=== PATIENT | male | born 1965 | race Caucasian/White ===

== ENCOUNTER 2023-02-10 16:46 | Inpatient (IN) ==
[2023-02-10] MEDS ORDERED: SODIUM CHLORIDE 0.9% 1,000 ML IV STA (16:52)
[2023-02-10] MEDS ORDERED: ONDANSETRON INJ 2 MG/ML 2 ML VIAL IV STA (16:52)
--- NOTE | 2023-02-10 16:57 | ED Triage Note ---
Date of Service February 10, 2023 History of Present Illness This patient was briefly evaluated while in triage. An abbreviated physical exam was performed. This patient is a 57-year-old Male who presents to the ED for evaluation of diffuse abdominal pain, vomiting diarrhea x 4 days. Feels dehydrated. No fevers but felt hot. epigastric pain but no chest pain or dyspnea. No bloody diarrhea. Physical Exam CONSTITUTIONAL: in no acute pain or distress, resting comfortably SKIN: pink, warm, dry CARDIAC: regular rate and rhythm RESPIRATORY: in no respiratory distress, lungs clear to auscultation ABDOMEN: no focal tenderness Initial orders for labs and / or imaging were placed and patient was placed in the waiting area until a bed is available. Please see further documentation for the full ED course.
[2023-02-10] MEDS ORDERED: PANTOprazole 80 MG in DEXTROSE 5% 100 ML IV ONE (17:29)
[2023-02-10] MEDS ORDERED: PANTOPRAZOLE BOLUS/DRIP IV STA (17:29)
[2023-02-10] MEDS ORDERED: PANTOprazole 40 MG in DEXTROSE 5% 100 ML IV SCH (17:45)
[2023-02-10 17:49] LABS: Basophils # (auto) 0.03 K/uL (0.00-0.20); Basophils % (auto) 0.4 %; Eosinophils # (auto) 0.04 K/uL (0.00-0.50); Eosinophils % (auto) 0.5 %; Hematocrit (blood only) 43.9 % (42.0-52.0); Hemoglobin 15.4 g/dl (14.0-18.0); Immature Granulocytes # (auto) 0.02 K/uL (0.01-0.20); Immature Granulocytes % (auto) 0.3 %; Lymphocytes # (auto) 1.29 K/uL (1.20-3.40); Lymphocytes % (auto) 17.2 %; Mean Corpuscular Hemoglobin 31.4 pg (25.0-34.0); Mean Corpuscular Hgb Conc 35.1 g/dL (32.0-36.0); Mean Corpuscular Volume 89.6 fL (80.0-100.0); Mean Platelet Volume 12.4 fL (9.4-12.4); Monocytes # (auto) 0.94 K/uL (0.11-0.59); Monocytes % (auto) 12.6 %; Neutrophils # (auto) 5.16 K/uL (1.40-6.50); Platelet Count 141 K/uL (130-400); RDW Coefficient of Variation 12.1 % (11.5-14.5); RDW Standard Deviation 39.8 fL (36.4-46.3); White Blood Count 7.48 K/ul (4.8-10.8)
[2023-02-10 18:03] LABS: Albumin Globulin Ratio 1.7 (0.9-2); BUN Creatinine Ratio 16.2 (10-20); Bilirubin,Total 1.1 mg/dl (0.2-1.0); Creatinine Clr Calc Pharmacy 167.4 ml/min; Est GFR (African American) 123.7 ml/min; Est GFR (Non-African American) 106.8 ml/min; Globulin 2.3 gm/dl (2.5-4.0); Potassium 3.3 mmol/L (3.5-5.1); Total Protein 6.3 gm/dl (6.0-8.3)
[2023-02-10 18:09] LABS: Troponin I High Sensitivity 5.4 pg/ml (0-20)
[2023-02-10] MEDS ORDERED: OPTIRAY 320 100ml IV ONE (19:23)
[2023-02-10 20:47] LABS: Appearance Urine Clear (Clear); Bilirubin Urine Negative (Negative); Blood Urine Negative (Negative); Color Urine Dark Yellow; Glucose Urine UA Negative (Negative); Ketones Urine Trace (Negative); Leukocyte Esterase Urine Negative (Negative); Nitrite Urine Negative (Negative); Protein Urine Negative (Negative); Specific Gravity Urine > 1.045 (1.000-1.030); Urobilinogen Urine Negative (Negative); pH Urine 5.5 (4.5-7.5)
--- NOTE | 2023-02-10 21:21 | CT Scan Report ---
Exam(s): CT ABDOMEN + PELVIS With Contrast IV Amt: 92 ml optiray 320 EXAM: CT Abdomen and Pelvis With Intravenous Contrast CLINICAL HISTORY: Abdominal pain. TECHNIQUE: Axial computed tomography images of the abdomen and pelvis with intravenous contrast. Automated exposure control was utilized for the study. A dose lowering technique was utilized adhering to the principles of ALARA. CONTRAST: Patient received 92 ml optiray 320 of IV contrast COMPARISON: No relevant prior studies available. FINDINGS: Lung bases: Right lower lobe airspace opacities concerning for pneumonia and/or aspiration. Pleural space: Trace right pleural effusion. ABDOMEN: Liver: Unremarkable. No mass. Gallbladder and bile ducts: Distended gallbladder with prominent wall and pericholecystic fluid is noted. The fluid extends inferiorly surrounding the proximal duodenum and common bile duct. Pancreas: Unremarkable. No mass. No ductal dilation. Spleen: Unremarkable. No splenomegaly. Adrenals: Unremarkable. No mass. Kidneys and ureters: Punctate nonobstructing right renal calculus. No hydronephrosis of either kidney. Stomach and bowel: Thickening of the duodenum and colon at the hepatic flexure are likely reactive. PELVIS: Appendix: Normal appendix. Bladder: Unremarkable. No mass. Reproductive: Unremarkable as visualized. ABDOMEN and PELVIS: Intraperitoneal space: Unremarkable. No free air. No significant fluid collection. Bones/joints: There are degenerative changes of the spine. No acute fracture. No dislocation. Soft tissues: Small bilateral fat-containing umbilical hernias. There is a small fat-containing umbilical hernia. Vasculature: Mild atherosclerosis. No abdominal aortic aneurysm. Lymph nodes: Unremarkable. No enlarged lymph nodes. IMPRESSION: 1. Distended gallbladder with prominent wall and pericholecystic fluid is noted. The fluid extends inferiorly surrounding the proximal duodenum and common bile duct. The differential includes acute cholecystitis and ascending cholangitis. 2. Right lower lobe airspace opacities concerning for pneumonia and/or aspiration. 3. Punctate nonobstructing right renal calculus. No hydronephrosis of either kidney. 4. Thickening of the duodenum and colon at the hepatic flexure are likely reactive. 5. Trace right pleural effusion. 6. Erosive employed changes of L2-L3 may be degenerative, cannot exclude discitis/osteomyelitis. Electronically signed by: Zenaida Ricardo MD 02/10/23 21:20 PM
[2023-02-10] MEDS ORDERED: cefTRIAXone SODIUM 2,000 MG/70 ML BAG IV STA (21:38)
[2023-02-10] MEDS ORDERED: metroNIDAZOLE 500 MG/100 ML BAG IV STA (21:38)
[2023-02-10] MEDS ORDERED: AZITHROMYCIN 500 MG in DEXTROSE 5% 250 ML IV STA (21:53)
[2023-02-10 22:06] LABS: Adenovirus F 40/41 PCR Not Detected (NotDetected); Astrovirus PCR Not Detected (NotDetected); Campylobacter PCR Not Detected (NotDetected); Cryptosporidium PCR Not Detected (NotDetected); Cyclospora cayetanensis PCR Not Detected (NotDetected); Entamoeba histolytica PCR Not Detected (NotDetected); Enteroaggregative E.coli(EAEC) Not Detected (NotDetected); Enteropathogenic E.coli (EPEC) Not Detected (NotDetected); Enterotoxigenic E.coli (ETEC) Not Detected (NotDetected); Giardia lamblia PCR Not Detected (NotDetected); Norovirus GI/GII PCR Not Detected (NotDetected); Plesiomonas shigelloides PCR Not Detected (NotDetected); Rotavirus A PCR Not Detected (NotDetected); Salmonella PCR Not Detected (NotDetected); Sapovirus PCR Not Detected (NotDetected); Shiga-like Toxin E.coli (STEC) Not Detected (NotDetected); Shigella/Enteroinvasive E.coli Not Detected (NotDetected); Vibrio cholerae PCR Not Detected (NotDetected); Vibrio species PCR Not Detected (NotDetected); Yersinia enterocolitica PCR Not Detected (NotDetected)
--- NOTE | 2023-02-10 22:06 | Surgery Consultation ---
Date of Consultation February 10, 2023 Assessment & Plan (1) Cholecystitis: I discussed with the treating emergency room physician he is being admitted on the hospitalist service. We recommend proceeding as follows: We will keep the patient n.p.o. for the present time Would continue intravenous fluid resuscitation Would recommend maintaining the patient on antibiotics. He has received Rocephin, Zithromax, and Flagyl. Antibiotic should continue. Of note, the treating emergency room physician has added Zithromax due to concern for possible pneumonia noted on CT scan There is no comment, nor can I see any gallstones on the patient's CAT scan so we will check a right upper quadrant ultrasound for further delineation and evaluation of the patient's gallbladder and biliary system Serial labs to be followed Analgesics and antiemetics to be provided Patient will be reevaluated in the morning and a determination will be made about potential timing of possible cholecystectomy Supervising Physician Co-Signing Physician Notes This case was discussed with the surgical PA. I agree with the plan. History of Present Illness Reason for Consultation: Cholecystitis History of Present Illness This is a 57-year-old male who presented the emergency department secondary to 3 to 4 days of abdominal pain. He notes that the pain is nonradiating is located in the right upper quadrant. He denies any palliative or provocative factors. He denies any fevers. The patient denies any postprandial pain over the past several weeks to months. He has never had any prior abdominal surgeries. He notes his most recent oral intake was earlier this morning. Since arrival to the hospital the patient has had labs and imaging which I independent reviewed. CT scan of the abdomen pelvis showed the patient had a distended gallbladder with pericholecystic fluid. The patient was also noted to have some right lower lobe airspace opacities concerning for pneumonia. Labs include a CBC her white blood cell count, hemoglobin, hematocrit, and platelet count were normal. Chemistry profile showed sodium was 135 with a potassium of 3.3. BUN and creatinine were both within normal range. His total bilirubin is 1.1. Transaminases and alkaline phosphatase along with lipase were nonelevated. Urinalysis was not indicative of infection. At the time of my interview the patient was resting comfortably in bed he was in no distress. Allergies Allergy/AdvReac Type Severity Reaction Status Date / Time No Known Allergies Allergy Verified 02/10/23 22:58 Home Medications Medication Instructions Recorded Confirmed Type levothyroxine 175 mcg tablet 175 mcg PO QAM 11/19/22 02/10/23 History pantoprazole 40 mg tablet,delayed 40 mg PO QAM 11/19/22 02/10/23 History release Patient History Medical History Chronic back pain Chronic cough s/p covid-19 virus in 2020. reason for flovent GERD (gastroesophageal reflux disease) H/O carbuncle of skin and subcutaneous tissue Hip deformity, congenital follows with healthcare economics manager on a regular basis History of COVID-19 2020 - severe symptoms, no hospitalization. still has not fully regained his full smell nor full taste and a lingering cough since. Hx of colonic polyps Hypothyroidism Osteoarthritis Surgical History H/O removal of cyst removal of carbuncle of the axilla as a child History of cataract surgery History of colonoscopy Family History Other No family history of adverse response to anesthesia Social History Smoking Status: Former smoker Second Hand Exposure: Yes; Do You Dip or Chew Tobacco: No; Tobacco Cessation Education Requested by Patient: No Hx Alcohol Use: Yes Alcohol type: beer Hx Substance Use: No Preferred Language: Portuguese Communication Ability: Effective [employer] Required: No Beliefs That Will Affect Care: None Current Living Situation: Spouse Other Information That Helps Us Care for You: No Feels Safe at Home: Yes Safety Concerns: Feels Safe At This Time Assistive Devices: None Review of Systems Constitutional: no fever Ear, Nose, Mouth, Throat: no ear pain Respiratory: no cough and no dyspnea Cardiovascular: no chest pain Gastrointestinal: as per Subjective / HPI Genitourinary: no dysuria Musculoskeletal: no back pain Integumentary: no rash Neurologic: no localized weakness Physical Exam Constitutional: WD/WN, vitals as above Eyes: + anicteric sclerae ENMT: Ears: no hearing impairment and no external ear abnormality Mouth: no oropharynx abnormality Neck: trachea midline Respiratory: normal respiratory effort; no respiratory distress and no labored breathing Cardiovascular: Rate/Rhythm: regular rate and regular rhythm Gastrointestinal (Abdomen): Abdomen is soft, nonrigid, nondistended. The patient did have pain with palpation in the right upper quadrant Musculoskeletal: No calf tenderness Skin: no rashes Neurologic: moves all extremities Psychiatric: A+Ox3, euthymic affect Results & Data Vital Signs (Past 12 Hours) Vital Signs Temp Pulse Pulse Resp BP BP Pulse Ox 02/10/23 20:32 94 02/10/23 20:01 90 20 143/94 H 95 02/10/23 16:49 36.9 C 99 H 20 121/83 94 O2 Del Method 02/10/23 20:32 Room Air 02/10/23 20:01 Room Air 02/10/23 16:49 Room Air PG Care Time/CCT Total # of Minutes Spent Total Time Spent with Patient: Total time spent is greater than 50% in coordination of care (as documented) at patient's floor/unit and/or counseling patient: Coding Level of Care Code 88104 IN/OBS CONSULT LVL 5,80M Diagnoses Cholecystitis K81.9
--- NOTE | 2023-02-10 23:00 | Emergency Department Note ---
History of Present Illness General Chief complaint: Abdominal Pain Stated complaint: ?FOOD POISENING Time Seen by Provider: 02/10/23 17:20 History of Present Illness Provider Complaint: + nausea, + vomiting, + diarrhea and + abdominal pain Onset (ago): day(s) 4 Description of Vomiting: no bilious, no blood-streaked, no bloody or no coffee grounds Description of Diarrhea: no mucousy, no tarry, no blood-streaked or no bloody (b right red) Associated Abdominal Pain: Yes Location of pain: + diffuse Severity: moderate Quality: + cramping, + stabbing, + aching, + sharp and + dull Pain Consistency: + intermittent Relieved By: + none Exacerbated By: + eating Context: + possible food poisoning (Patient reports his symptoms began after ea ting salad); no sick contacts, no history of abdominal surgery, no alcohol abuse, no smoking or no marijuana use Associated symptoms: no myalgias, no chest pain, no cough, no fever/chills, no headaches, no rash, no dysuria, no shortness of breath, no decreased urine output or no altered mental status Home Medications Medication Instructions Recorded Confirmed Type levothyroxine 175 mcg tablet 175 mcg PO QAM 11/19/22 02/10/23 History pantoprazole 40 mg tablet,delayed 40 mg PO QAM 11/19/22 02/10/23 History release Allergies Allergy/AdvReac Type Severity Reaction Status Date / Time No Known Allergies Allergy Verified 02/10/23 22:58 Past Med/Surg History Medical History Chronic back pain Chronic cough s/p covid-19 virus in 2020. reason for flovent GERD (gastroesophageal reflux disease) H/O carbuncle of skin and subcutaneous tissue Hip deformity, congenital follows with ocular care aide on a regular basis History of COVID-19 2020 - severe symptoms, no hospitalization. still has not fully regained his full smell nor full taste and a lingering cough since. Hx of colonic polyps Hypothyroidism Osteoarthritis Surgical History H/O removal of cyst removal of carbuncle of the axilla as a child History of cataract surgery History of colonoscopy Family History Other No family history of adverse response to anesthesia Social History Smoking Status: Never smoker Second Hand Exposure: No; Do You Dip or Chew Tobacco: No; Hx Alcohol Use: No Hx Substance Use: No Preferred Language: Yi Communication Ability: Effective Post Office Manager Required: No Beliefs That Will Affect Care: None Current Living Situation: Spouse Feels Safe at Home: Yes Assistive Devices: Glasses Physical Exam Vital Signs: Vital Signs - 24 hr 02/10/23 16:49 02/10/23 20:01 02/10/23 20:32 Temperature 36.9 C Temperature Source Temporal Artery Sc an Pulse Rate 99 H Pulse Rate [Apical ] 90 Pulse Rhythm [Apic al] Respiratory Rate 20 20 Blood Pressure 121/83 Blood Pressure [Le ft Arm] 143/94 H Blood Pressure Janet n 95 Blood Pressure Janet n [Left Arm] 110 Pulse Oximetry 94 95 94 Oxygen Delivery Me thod Room Air Room Air Room Air Sepsis Recent Feve r Within 48 Hours No Sepsis New/Unexpla ined Change in Men sam Status N/A Sepsis Action Take n by Nursing No Action Required 02/10/23 22:00 Temperature Temperature Source Pulse Rate Pulse Rate [Apical ] 79 Pulse Rhythm [Apic al] Regular Respiratory Rate 16 Blood Pressure Blood Pressure [Le ft Arm] 136/102 H Blood Pressure Janet n Blood Pressure Janet n [Left Arm] 113 Pulse Oximetry 99 Oxygen Delivery Me thod Room Air Sepsis Recent Feve r Within 48 Hours Sepsis New/Unexpla ined Change in Men sam Status Sepsis Action Take n by Nursing Physical Exam: Physical Exam GENERAL: She is oriented to person, place, and time. She appears well-developed and well-nourished. She does not appear distressed. HENT: Exam performed. -Head: Normocephalic and atraumatic. -Right Ear: External ear normal. No mastoid erythema -Left Ear: External ear normal. No mastoid erythema -Mouth/Throat: The oropharynx is clear and moist. No trismus in the jaw. No dental abscesses or uvula swelling. No oropharyngeal exudate or tonsillar abscesses. EYES: Conjunctivae and EOM are normal.Right eye exhibits no discharge. Left eye exhibits no discharge. No scleral icterus. NECK: Normal range of motion. Neck supple. No JVD present. No tracheal deviation and normal range of motion present. CV: Normal rate, regular rhythm, normal heart sounds and intact distal pulses. There is no peripheral edema. Palpable radial pulses bue. PULM/CHEST: Effort normal and breath sounds normal. No respiratory distress. No stridor. She has no wheezes. She has no rales. -Chest Wall: She exhibits no tenderness. ABD: The abdomen is soft and obese. Bowel sounds are normal. She has no distension. No mass is present. There is no tenderness. There is no rebound, no guarding, no Katz's sign and no tenderness at McBurney's point. Rovsig negative MUSC/SKEL: Normal range of motion. There is no peripheral edema, tenderness or deformity. NEURO: Motor and sensation grossly intact. SKIN: Skin is warm and dry. She is not diaphoretic. PSYCH: She has a normal mood and affect. Behavior is normal. Judgment and tho ught content normal. Course Course 1720: The patient was evaluated in room A10. A complete history and physical exam was performed Cardiac monitoring: An order was placed for continuous cardiac monitoring. The monitor shows a rate of 80 with sinus rhythm interpreted by nv 2200: Vital signs stable. Labs show white blood cell count of 7.48 hemoglobin stable. Potassium 3.3. Total bilirubin 1.1. Urinalysis negative. CT abdomen pelvis showed a distended gallbladder with prominent wall and pericholecystic fluid. The fluid extends inferiorly surrounding the duodenum and common bile duct. According to the radiologist the differential includes acute cholecystitis and ascending cholangitis. There is also mention of right lower base airspace opacity concerning for pneumonia. Clinically there is absolutely no concern for a sending cholangitis as the patient has a minimally elevated bilirubin of 1.1, no fever. Discussed case with surgery ARNEL Coreas on-call for Dr. Finn Toro. Surgical team recommends admission to medicine and they will be on consult. Antibiotics Rocephin and Flagyl ordered for the patient's possible cholecystitis and azithromycin also ordered in case of any pneumonia. Patient be admitted to the [facility] team. Administered Medications Discontinued Medications Sodium Chloride (Nss 1000ml) 1,000 mls @ 999 mls/hr IV .Q1H1M STA Stop: 02/10/23 17:52 Last Infusion: 02/10/23 20:04 Dose: 0 mls/hr Documented By: Admin: 02/10/23 17:21 Dose: 999 mls/hr Documented By: CANDIS Pantoprazole Sodium 80 mg/ (Dextrose) 120 mls @ 400 mls/hr IV NOW ONE Stop: 02/10/23 17:46 Last Admin: 02/10/23 20:28 Dose: Not Given Documented By: CINTHIA Ceftriaxone Sodium (Rocephin) 2,000 mg in 70 mls @ 140 mls/hr IV NOW STA Stop: 02/10/23 22:07 Last Admin: 02/10/23 22:17 Dose: 140 mls/hr Documented By: CINTHIA Ioversol (Optiray 320 100ml) 92 ml IV ONCE ONE Stop: 02/10/23 19:24 Last Admin: 02/10/23 19:23 Dose: 92 ml Documented By: EMPERATRIZ Ondansetron HCl (Ondansetron Inj 2 Mg/Ml 2 Ml Vial) 4 mg IV NOW STA Stop: 02/10/23 16:53 Last Admin: 02/10/23 17:21 Dose: 4 mg Documented By: CANDIS Pantoprazole Sodium (Pantoprazole Bolus/Drip) 1 each IV NOW STA Stop: 02/10/23 17:30 Last Admin: 02/10/23 20:28 Dose: Not Given Documented By: CINTHIA Medical Decision Making Laboratory Data Attestation: I reviewed the patient's lab results. 02/10/23 17:16 02/10/23 17:16 Lab Results 02/10/23 02/10/23 02/10/23 Range/Units 17:16 17:16 20:24 WBC 7.48 (4.8-10.8) K/ul RBC 4.90 (4.70-6.10) M/uL Hgb 15.4 (14.0-18.0) g/dl Hct 43.9 (42.0-52.0) % MCV 89.6 (80.0-100.0) fL MCH 31.4 (25.0-34.0) pg MCHC 35.1 (32.0-36.0) g/dL RDW Std Deviation 39.8 (36.4-46.3) fL RDW Coeff of Tatiana 12.1 (11.5-14.5) % Plt Count 141 (130-400) K/uL MPV 12.4 (9.4-12.4) fL Immature Gran % (Auto) 0.3 % Neut % (Auto) 69.0 % Lymph % (Auto) 17.2 % [place] % (Auto) 12.6 % Eos % (Auto) 0.5 % Baso % (Auto) 0.4 % Neut # (Auto) 5.16 (1.40-6.50) K/uL Lymph # (Auto) 1.29 (1.20-3.40) K/uL [place] # (Auto) 0.94 H (0.11-0.59) K/uL Eos # (Auto) 0.04 (0.00-0.50) K/uL Baso # (Auto) 0.03 (0.00-0.20) K/uL Immature Gran # (Auto) 0.02 (0.01-0.20) K/uL Sodium 135 L (136-145) mmol/L Potassium 3.3 L (3.5-5.1) mmol/L Chloride 102 (98-107) mmol/L Carbon Dioxide 24 (21-32) mmol/L Anion Gap 9 (3-11) BUN 11 (6-23) mg/dl Creatinine 0.68 (0.6-1.4) mg/dl Est Cr Clr Drug Dosing 167.4 ml/min Est GFR ( Amer) 123.7 ml/min Est GFR (Non-Af Amer) 106.8 ml/min BUN/Creatinine Ratio 16.2 (10-20) Glucose 103 H (70-99(Fasting)) mg/dl Calcium 9.0 (8.6-10.3) mg/dl Total Bilirubin 1.1 H (0.2-1.0) mg/dl AST 22 (13-39) U/L ALT 26 (7-52) U/L Alkaline Phosphatase 78 (34-104) U/L Troponin I High Sens 5.4 (0-20) pg/ml Total Protein 6.3 (6.0-8.3) gm/dl Albumin 4.0 (3.4-5.0) gm/dl Globulin 2.3 L (2.5-4.0) gm/dl Albumin/Globulin Ratio 1.7 (0.9-2) Lipase 5 L (11-82) U/L Urine Color Urine Appearance (Clear) Urine pH (4.5-7.5) Ur Specific [place] (1.000-1.030) Urine Protein (Negative) Urine Glucose (UA) (Negative) Urine Ketones (Negative) Urine Blood (Negative) Urine Nitrite (Negative) Urine Bilirubin (Negative) Urine Urobilinogen (Negative) Ur Leukocyte Esterase (Negative) Stl C. cayetanensis PCR Not Detected (NotDetected) Stool Rotavirus A PCR Not Detected (NotDetected) Stl Adenov F 40/41 PCR Not Detected (NotDetected) Stool Astrovirus (PCR) Not Detected (NotDetected) Stool Campylobacter PCR Not Detected (NotDetected) Stool Cryptosporidium PCR Not Detected (NotDetected) Stl E.coli Shiga Tox PCR Not Detected (NotDetected) Stl Enterotoxigenic E PCR Not Detected (NotDetected) Stool EPEC (PCR) Not Detected (NotDetected) Stool EAEC (PCR) Not Detected (NotDetected) Stl E. histolytica PCR Not Detected (NotDetected) Stool Giardia Lamblia PCR Not Detected (NotDetected) Stool Salmonella PCR Not Detected (NotDetected) Stool Sapovirus (PCR) Not Detected (NotDetected) Stl P. shigelloides PCR Not Detected (NotDetected) Stl Shigella/EIEC PCR Not Detected (NotDetected) St Y.enterocolitica PCR Not Detected (NotDetected) Stool Vibrio (PCR) Not Detected (NotDetected) Stl Vibrio cholerae PCR Not Detected (NotDetected) Stl Norovirus GI/GII PCR Not Detected (NotDetected) 02/10/23 Range/Units 20:24 WBC (4.8-10.8) K/ul RBC (4.70-6.10) M/uL Hgb (14.0-18.0) g/dl Hct (42.0-52.0) % MCV (80.0-100.0) fL MCH (25.0-34.0) pg MCHC (32.0-36.0) g/dL RDW Std Deviation (36.4-46.3) fL RDW Coeff of Tatiana (11.5-14.5) % Plt Count (130-400) K/uL MPV (9.4-12.4) fL Immature Gran % (Auto) % Neut % (Auto) % Lymph % (Auto) % [place] % (Auto) % Eos % (Auto) % Baso % (Auto) % Neut # (Auto) (1.40-6.50) K/uL Lymph # (Auto) (1.20-3.40) K/uL [place] # (Auto) (0.11-0.59) K/uL Eos # (Auto) (0.00-0.50) K/uL Baso # (Auto) (0.00-0.20) K/uL Immature Gran # (Auto) (0.01-0.20) K/uL Sodium (136-145) mmol/L Potassium (3.5-5.1) mmol/L Chloride (98-107) mmol/L Carbon Dioxide (21-32) mmol/L Anion Gap (3-11) BUN (6-23) mg/dl Creatinine (0.6-1.4) mg/dl Est Cr Clr Drug Dosing ml/min Est GFR ( Amer) ml/min Est GFR (Non-Af Amer) ml/min BUN/Creatinine Ratio (10-20) Glucose (70-99(Fasting)) mg/dl Calcium (8.6-10.3) mg/dl Total Bilirubin (0.2-1.0) mg/dl AST (13-39) U/L ALT (7-52) U/L Alkaline Phosphatase (34-104) U/L Troponin I High Sens (0-20) pg/ml Total Protein (6.0-8.3) gm/dl Albumin (3.4-5.0) gm/dl Globulin (2.5-4.0) gm/dl Albumin/Globulin Ratio (0.9-2) Lipase (11-82) U/L Urine Color Dark Yellow Urine Appearance Clear (Clear) Urine pH 5.5 (4.5-7.5) Ur Specific [place] > 1.045 H (1.000-1.030) Urine Protein Negative (Negative) Urine Glucose (UA) Negative (Negative) Urine Ketones Trace H (Negative) Urine Blood Negative (Negative) Urine Nitrite Negative (Negative) Urine Bilirubin Negative (Negative) Urine Urobilinogen Negative (Negative) Ur Leukocyte Esterase Negative (Negative) Stl C. cayetanensis PCR (NotDetected) Stool Rotavirus A PCR (NotDetected) Stl Adenov F 40/41 PCR (NotDetected) Stool Astrovirus (PCR) (NotDetected) Stool Campylobacter PCR (NotDetected) Stool Cryptosporidium PCR (NotDetected) Stl E.coli Shiga Tox PCR (NotDetected) Stl Enterotoxigenic E PCR (NotDetected) Stool EPEC (PCR) (NotDetected) Stool EAEC (PCR) (NotDetected) Stl E. histolytica PCR (NotDetected) Stool Giardia Lamblia PCR (NotDetected) Stool Salmonella PCR (NotDetected) Stool Sapovirus (PCR) (NotDetected) Stl P. shigelloides PCR (NotDetected) Stl Shigella/EIEC PCR (NotDetected) St Y.enterocolitica PCR (NotDetected) Stool Vibrio (PCR) (NotDetected) Stl Vibrio cholerae PCR (NotDetected) Stl Norovirus GI/GII PCR (NotDetected) Imaging Data Radiologist's Impression: Abdomen/Pelvis CT 02/10/23 17:31 Exam(s): CT ABDOMEN + PELVIS With Contrast IV Amt: 92 ml optiray 320 EXAM: CT Abdomen and Pelvis With Intravenous Contrast CLINICAL HISTORY: Abdominal pain. TECHNIQUE: Axial computed tomography images of the abdomen and pelvis with intravenous contrast. Automated exposure control was utilized for the study. A dose lowering technique was utilized adhering to the principles of ALARA. CONTRAST: Patient received 92 ml optiray 320 of IV contrast COMPARISON: No relevant prior studies available. FINDINGS: Lung bases: Right lower lobe airspace opacities concerning for pneumonia and/or aspiration. Pleural space: Trace right pleural effusion. ABDOMEN: Liver: Unremarkable. No mass. Gallbladder and bile ducts: Distended gallbladder with prominent wall and pericholecystic fluid is noted. The fluid extends inferiorly surrounding the proximal duodenum and common bile duct. Pancreas: Unremarkable. No mass. No ductal dilation. Spleen: Unremarkable. No splenomegaly. Adrenals: Unremarkable. No mass. Kidneys and ureters: Punctate nonobstructing right renal calculus. No hydronephrosis of either kidney. Stomach and bowel: Thickening of the duodenum and colon at the hepatic flexure are likely reactive. PELVIS: Appendix: Normal appendix. Bladder: Unremarkable. No mass. Reproductive: Unremarkable as visualized. ABDOMEN and PELVIS: Intraperitoneal space: Unremarkable. No free air. No significant fluid collection. Bones/joints: There are degenerative changes of the spine. No acute fracture. No dislocation. Soft tissues: Small bilateral fat-containing umbilical hernias. There is a small fat-containing umbilical hernia. Vasculature: Mild atherosclerosis. No abdominal aortic aneurysm. Lymph nodes: Unremarkable. No enlarged lymph nodes. IMPRESSION: 1. Distended gallbladder with prominent wall and pericholecystic fluid is noted. The fluid extends inferiorly surrounding the proximal duodenum and common bile duct. The differential includes acute cholecystitis and ascending cholangitis. 2. Right lower lobe airspace opacities concerning for pneumonia and/or aspiration. 3. Punctate nonobstructing right renal calculus. No hydronephrosis of either kidney. 4. Thickening of the duodenum and colon at the hepatic flexure are likely reactive. 5. Trace right pleural effusion. 6. Erosive employed changes of L2-L3 may be degenerative, cannot exclude discitis/osteomyelitis. Electronically signed by: Zenaida Ricardo MD 02/10/23 21:20 PM [facility] Narrative 1720: The patient was evaluated in room A10. A complete history and physical exam was performed Cardiac monitoring: An order was placed for continuous cardiac monitoring. The monitor shows a rate of 80 with sinus rhythm interpreted by nv 2200: Vital signs stable. Labs show white blood cell count of 7.48 hemoglobin stable. Potassium 3.3. Total bilirubin 1.1. Urinalysis negative. CT abdomen pelvis showed a distended gallbladder with prominent wall and pericholecystic fluid. The fluid extends inferiorly surrounding the duodenum and common bile duct. According to the radiologist the differential includes acute cholecystitis and ascending cholangitis. There is also mention of right lower base airspace opacity concerning for pneumonia. Clinically there is absolutely no concern for a sending cholangitis as the patient has a minimally elevated bilirubin of 1.1, no fever. Discussed case with surgery ARNEL Coreas on-call for Dr. Finn Toro. Surgical team recommends admission to medicine and they will be on consult. Antibiotics Rocephin and Flagyl ordered for the patient's possible cholecystitis and azithromycin also ordered in case of any pneumonia. Patient be admitted to the [facility] team. Impression & Plan Cholecystitis Discharge Plan Visit Data Chief Complaint: Abdominal Pain Stated Complaint: ?FOOD POISENING ED Provider: Ant Cadena Discharge Problem: Cholecystitis Patient Disposition: Admitted As Inpatient Forms Stand Alone Forms: My [facility] Prescriptions Prescriptions: No Action levothyroxine 175 mcg Tablet 175 mcg PO QAM pantoprazole 40 mg Tablet,Delayed Release (Dr/Ec) 40 mg PO QAM multivitamin Tablet 1 tab PO QAM Referrals Referrals: Mook Payton MD [Primary Care Provider] -
--- NOTE | 2023-02-10 23:31 | Ultrasound Report ---
Exam(s): US GALLBLADDER EXAM: US Abdomen Limited, Gallbladder CLINICAL HISTORY: Cholecystitis. TECHNIQUE: Real-time ultrasound of the right upper quadrant with image documentation. COMPARISON: No relevant prior studies available. FINDINGS: Liver: The liver measures 16.2 cm. There is increase echogenicity of the liver parenchyma. No mass. Gallbladder: Cholelithiasis. Mildly thickened gallbladder wall and pericholecystic fluid are concerning for acute cholecystitis. Common bile duct: The common bile duct is not visualized due to overlying bowel gas. Pancreas: The pancreatic head and body are within normal limits. The tail is not visualized due to overlying bowel gas. Right kidney: The right kidney measures 12.5 cm. IMPRESSION: 1. Cholelithiasis. Mildly thickened gallbladder wall and pericholecystic fluid are concerning for acute cholecystitis. 2. Fatty infiltration of the liver. Electronically signed by: Zenaida Ricardo MD 02/10/23 23:30 PM
--- NOTE | 2023-02-11 01:59 | History & Physical Report ---
Date of Service February 11, 2023 Assessment & Plan (1) Cholecystitis: Plan: 57-year-old male presents with right abdominal pain and found to have cholecystitis. Cholecystitis Abdominal pain since last CT scan and gallbladder most likely cholecystitis Gallstones on ultrasound Seen by surgery N.p.o., IV fluids, IV antiemetics as needed and IV pain meds as needed IV Zosyn Monitor medical floor Further recommendations per surgery Possible pneumonia On CT scan We will get chest x-ray Getting Zosyn We will add doxycycline patient has no shortness of breath or cough We will monitor Erosive changes L2-L3 On CT abdomen pelvis Currently no complaints of back pain and no spinal tenderness If any concerns will get MRI scan Hypothyroidism continue Synthyroid GERD continue Protonix DVT prophylaxis SCDs for now Disposition medical floor Full code History of Present Illness Chief Complaint: Abdominal pain Primary Care Provider: Mook Payton MD 57-year-old male with past med significant for hypothyroidism, GERD, obesity presents with severe abdominal pain starting last . Pain is more on the right side radiating to back and epigastric regions. Associate with nausea and vomiting. No diarrhea or constipation. Denies any blood in stools or black stools. Normal bladder movements. Denies any fevers. No chest pain or shortness of breath. Denies cough. No headache. Vision is okay. No earache or runny nose or sore throat. Currently resting comfortably and hemodynamically stable Past medical history as mentioned above Past surgical history colonoscopy Social history smoked 1 pack a day for 15 years quit in 2009. Alcohol rarely. No drug use. Family history father had colon cancer at age of 65. Mother had colon cancer at age of 49. Brother by HI at age 45. Father had HI. Allergies Allergy/AdvReac Type Severity Reaction Status Date / Time No Known Allergies Allergy Verified 02/10/23 22:58 Home Medications Medication Instructions Recorded Confirmed Type levothyroxine 175 mcg tablet 175 mcg PO QAM 11/19/22 02/10/23 History pantoprazole 40 mg tablet,delayed 40 mg PO QAM 11/19/22 02/10/23 History release Past Med/Surg History Medical History Chronic back pain Chronic cough s/p covid-19 virus in 2020. reason for flovent GERD (gastroesophageal reflux disease) H/O carbuncle of skin and subcutaneous tissue Hip deformity, congenital follows with doggy daycare activities director on a regular basis History of COVID-19 2020 - severe symptoms, no hospitalization. still has not fully regained his full smell nor full taste and a lingering cough since. Hx of colonic polyps Hypothyroidism Osteoarthritis Surgical History H/O removal of cyst removal of carbuncle of the axilla as a child History of cataract surgery History of colonoscopy Family History Other No family history of adverse response to anesthesia Social History Smoking Status: Former smoker Second Hand Exposure: Yes; Do You Dip or Chew Tobacco: No; Tobacco Cessation Education Requested by Patient: No Hx Alcohol Use: Yes Alcohol type: beer Hx Substance Use: No Preferred Language: Kosovan Communication Ability: Effective Finished Carpet Inspector Required: No Beliefs That Will Affect Care: None Current Living Situation: Spouse Other Information That Helps Us Care for You: No Feels Safe at Home: Yes Safety Concerns: Feels Safe At This Time Assistive Devices: None Review of Systems Review of Systems: All systems reviewed & are unremarkable except as noted in HPI & below Physical Exam Physical Exam: General- Not in distress Head- atraumatic Eyes- PERRL. ENT- oropharynx clear Neck- supple, no JVD, Lungs- clear to auscultation no wheezing or crackles. Heart- regular rate and rhythm; no murmur, no gallop. Abdomen- normal bowel sounds, soft, nontender, no distension. Extremities- no pretibial edema, no erythema seen. Neuro- alert, oriented x 3; PERRL, no facial palsy; no dysarthria; Non focal. Musculoskeletal No spinal tenderness. Skin- warm & dry Results & Data Results & Data Vital Signs (Past 12 Hours) Vital Signs Temp Pulse Pulse Resp BP BP Pulse Ox 02/10/23 22:00 79 16 136/102 H 99 02/10/23 20:32 94 02/10/23 20:01 90 20 143/94 H 95 02/10/23 16:49 36.9 C 99 H 20 121/83 94 O2 Del Method 02/10/23 22:00 Room Air 02/10/23 20:32 Room Air 02/10/23 20:01 Room Air 02/10/23 16:49 Room Air Diagnostic Findings Laboratory Results WBC 7.48 K/ul (4.8-10.8) 02/10/23 17:16 RBC 4.90 M/uL (4.70-6.10) 02/10/23 17:16 Hgb 15.4 g/dl (14.0-18.0) 02/10/23 17:16 Hct 43.9 % (42.0-52.0) 02/10/23 17:16 MCV 89.6 fL (80.0-100.0) 02/10/23 17:16 MCH 31.4 pg (25.0-34.0) 02/10/23 17:16 MCHC 35.1 g/dL (32.0-36.0) 02/10/23 17:16 RDW Std Deviation 39.8 fL (36.4-46.3) 02/10/23 17:16 RDW Coeff of Tatiana 12.1 % (11.5-14.5) 02/10/23 17:16 Plt Count 141 K/uL (130-400) 02/10/23 17:16 MPV 12.4 fL (9.4-12.4) 02/10/23 17:16 Immature Gran % (Auto) 0.3 % 02/10/23 17:16 Neut % (Auto) 69.0 % 02/10/23 17:16 Lymph % (Auto) 17.2 % 02/10/23 17:16 [place] % (Auto) 12.6 % 02/10/23 17:16 Eos % (Auto) 0.5 % 02/10/23 17:16 Baso % (Auto) 0.4 % 02/10/23 17:16 Neut # (Auto) 5.16 K/uL (1.40-6.50) 02/10/23 17:16 Lymph # (Auto) 1.29 K/uL (1.20-3.40) 02/10/23 17:16 [place] # (Auto) 0.94 K/uL (0.11-0.59) H 02/10/23 17:16 Eos # (Auto) 0.04 K/uL (0.00-0.50) 02/10/23 17:16 Baso # (Auto) 0.03 K/uL (0.00-0.20) 02/10/23 17:16 Immature Gran # (Auto) 0.02 K/uL (0.01-0.20) 02/10/23 17:16 Sodium 135 mmol/L (136-145) L 02/10/23 17:16 Potassium 3.3 mmol/L (3.5-5.1) L 02/10/23 17:16 Chloride 102 mmol/L (98-107) 02/10/23 17:16 Carbon Dioxide 24 mmol/L (21-32) 02/10/23 17:16 Anion Gap 9 (3-11) 02/10/23 17:16 BUN 11 mg/dl (6-23) 02/10/23 17:16 Creatinine 0.68 mg/dl (0.6-1.4) 02/10/23 17:16 Est Cr Clr Drug Dosing 167.4 ml/min 02/10/23 17:16 Est GFR ( Amer) 123.7 ml/min 02/10/23 17:16 Est GFR (Non-Af Amer) 106.8 ml/min 02/10/23 17:16 BUN/Creatinine Ratio 16.2 (10-20) 02/10/23 17:16 Glucose 103 mg/dl (70-99(Fasting)) H 02/10/23 17:16 Calcium 9.0 mg/dl (8.6-10.3) 02/10/23 17:16 Total Bilirubin 1.1 mg/dl (0.2-1.0) H 02/10/23 17:16 AST 22 U/L (13-39) 02/10/23 17:16 ALT 26 U/L (7-52) 02/10/23 17:16 Alkaline Phosphatase 78 U/L (34-104) 02/10/23 17:16 Troponin I High Sens 5.4 pg/ml (0-20) 02/10/23 17:16 Total Protein 6.3 gm/dl (6.0-8.3) 02/10/23 17:16 Albumin 4.0 gm/dl (3.4-5.0) 02/10/23 17:16 Globulin 2.3 gm/dl (2.5-4.0) L 02/10/23 17:16 Albumin/Globulin Ratio 1.7 (0.9-2) 02/10/23 17:16 Lipase 5 U/L (11-82) L 02/10/23 17:16 Urine Color Dark Yellow 02/10/23 20:24 Urine Appearance Clear (Clear) 02/10/23 20:24 Urine pH 5.5 (4.5-7.5) 02/10/23 20:24 Ur Specific [place] > 1.045 (1.000-1.030) H 02/10/23 20:24 Urine Protein Negative (Negative) 02/10/23 20:24 Urine Glucose (UA) Negative (Negative) 02/10/23 20:24 Urine Ketones Trace (Negative) H 02/10/23 20:24 Urine Blood Negative (Negative) 02/10/23 20:24 Urine Nitrite Negative (Negative) 02/10/23 20:24 Urine Bilirubin Negative (Negative) 02/10/23 20:24 Urine Urobilinogen Negative (Negative) 02/10/23 20:24 Ur Leukocyte Esterase Negative (Negative) 02/10/23 20:24 Stl C. cayetanensis PCR Not Detected (NotDetected) 02/10/23 20:24 Stool Rotavirus A PCR Not Detected (NotDetected) 02/10/23 20:24 Stl Adenov F 40/41 PCR Not Detected (NotDetected) 02/10/23 20:24 Stool Astrovirus (PCR) Not Detected (NotDetected) 02/10/23 20:24 Stool Campylobacter PCR Not Detected (NotDetected) 02/10/23 20:24 Stool Cryptosporidium PCR Not Detected (NotDetected) 02/10/23 20:24 Stl E.coli Shiga Tox PCR Not Detected (NotDetected) 02/10/23 20:24 Stl Enterotoxigenic E PCR Not Detected (NotDetected) 02/10/23 20:24 Stool EPEC (PCR) Not Detected (NotDetected) 02/10/23 20:24 Stool EAEC (PCR) Not Detected (NotDetected) 02/10/23 20:24 Stl E. histolytica PCR Not Detected (NotDetected) 02/10/23 20:24 Stool Giardia Lamblia PCR Not Detected (NotDetected) 02/10/23 20:24 Stool Salmonella PCR Not Detected (NotDetected) 02/10/23 20:24 Stool Sapovirus (PCR) Not Detected (NotDetected) 02/10/23 20:24 Stl P. shigelloides PCR Not Detected (NotDetected) 02/10/23 20:24 Stl Shigella/EIEC PCR Not Detected (NotDetected) 02/10/23 20:24 St Y.enterocolitica PCR Not Detected (NotDetected) 02/10/23 20:24 Stool Vibrio (PCR) Not Detected (NotDetected) 02/10/23 20:24 Stl Vibrio cholerae PCR Not Detected (NotDetected) 02/10/23 20:24 Stl Norovirus GI/GII PCR Not Detected (NotDetected) 02/10/23 20:24 Impressions Abdomen/Pelvis CT 02/10/23 17:31 Exam(s): CT ABDOMEN + PELVIS With Contrast IV Amt: 92 ml optiray 320 EXAM: CT Abdomen and Pelvis With Intravenous Contrast CLINICAL HISTORY: Abdominal pain. TECHNIQUE: Axial computed tomography images of the abdomen and pelvis with intravenous contrast. Automated exposure control was utilized for the study. A dose lowering technique was utilized adhering to the principles of ALARA. CONTRAST: Patient received 92 ml optiray 320 of IV contrast COMPARISON: No relevant prior studies available. FINDINGS: Lung bases: Right lower lobe airspace opacities concerning for pneumonia and/or aspiration. Pleural space: Trace right pleural effusion. ABDOMEN: Liver: Unremarkable. No mass. Gallbladder and bile ducts: Distended gallbladder with prominent wall and pericholecystic fluid is noted. The fluid extends inferiorly surrounding the proximal duodenum and common bile duct. Pancreas: Unremarkable. No mass. No ductal dilation. Spleen: Unremarkable. No splenomegaly. Adrenals: Unremarkable. No mass. Kidneys and ureters: Punctate nonobstructing right renal calculus. No hydronephrosis of either kidney. Stomach and bowel: Thickening of the duodenum and colon at the hepatic flexure are likely reactive. PELVIS: Appendix: Normal appendix. Bladder: Unremarkable. No mass. Reproductive: Unremarkable as visualized. ABDOMEN and PELVIS: Intraperitoneal space: Unremarkable. No free air. No significant fluid collection. Bones/joints: There are degenerative changes of the spine. No acute fracture. No dislocation. Soft tissues: Small bilateral fat-containing umbilical hernias. There is a small fat-containing umbilical hernia. Vasculature: Mild atherosclerosis. No abdominal aortic aneurysm. Lymph nodes: Unremarkable. No enlarged lymph nodes. IMPRESSION: 1. Distended gallbladder with prominent wall and pericholecystic fluid is noted. The fluid extends inferiorly surrounding the proximal duodenum and common bile duct. The differential includes acute cholecystitis and ascending cholangitis. 2. Right lower lobe airspace opacities concerning for pneumonia and/or aspiration. 3. Punctate nonobstructing right renal calculus. No hydronephrosis of either kidney. 4. Thickening of the duodenum and colon at the hepatic flexure are likely reactive. 5. Trace right pleural effusion. 6. Erosive employed changes of L2-L3 may be degenerative, cannot exclude discitis/osteomyelitis. Electronically signed by: Zenaida Ricardo MD 02/10/23 21:20 PM Gallbladder Ultrasound 02/10/23 22:05 Exam(s): US GALLBLADDER EXAM: US Abdomen Limited, Gallbladder CLINICAL HISTORY: Cholecystitis. TECHNIQUE: Real-time ultrasound of the right upper quadrant with image documentation. COMPARISON: No relevant prior studies available. FINDINGS: Liver: The liver measures 16.2 cm. There is increase echogenicity of the liver parenchyma. No mass. Gallbladder: Cholelithiasis. Mildly thickened gallbladder wall and pericholecystic fluid are concerning for acute cholecystitis. Common bile duct: The common bile duct is not visualized due to overlying bowel gas. Pancreas: The pancreatic head and body are within normal limits. The tail is not visualized due to overlying bowel gas. Right kidney: The right kidney measures 12.5 cm. IMPRESSION: 1. Cholelithiasis. Mildly thickened gallbladder wall and pericholecystic fluid are concerning for acute cholecystitis. 2. Fatty infiltration of the liver. Electronically signed by: Zenaida Ricardo MD 02/10/23 23:30 PM ECG Additional Comments: ECG normal sinus rhythm with rate of [address] changes Code Status & VTE Plan VTE Prophylaxis Plan VTE Prophylaxis will be ordered: Yes
[2023-02-11] MEDS ORDERED: ONDANSETRON INJ 2 MG/ML 2 ML VIAL IV PRN (02:56)
[2023-02-11] MEDS ORDERED: HYDROmorphone INJ 0.5 MG/0.5 ML SYR IV PRN (02:56)
[2023-02-11] MEDS: D5W AND 1/2NSS 1,000 ML IV SCH ×2 (03:03→11:25)
[2023-02-11] MEDS: PIPERACILLIN/TAZOBACTAM 4.5 GM in DEXTROSE 5% 100 ML IV SCH ×3 (04:01→19:59)
[2023-02-11] MEDS: LEVOTHYROXINE SODIUM 175 MCG TABLET PO SCH (06:06)
[2023-02-11 06:42] LABS: Basophils # (auto) 0.03 K/uL (0.00-0.20); Basophils % (auto) 0.5 %; Eosinophils # (auto) 0.03 K/uL (0.00-0.50); Eosinophils % (auto) 0.5 %; Hematocrit (blood only) 40.1 % (42.0-52.0); Hemoglobin 13.7 g/dl (14.0-18.0); Immature Granulocytes # (auto) 0.02 K/uL (0.01-0.20); Immature Granulocytes % (auto) 0.3 %; Lymphocytes % (auto) 18.5 %; Mean Corpuscular Hemoglobin 31.2 pg (25.0-34.0); Mean Corpuscular Hgb Conc 34.2 g/dL (32.0-36.0); Mean Corpuscular Volume 91.3 fL (80.0-100.0); Mean Platelet Volume 12.3 fL (9.4-12.4); Monocytes # (auto) 0.95 K/uL (0.11-0.59); Monocytes % (auto) 14.6 %; Neutrophils # (auto) 4.27 K/uL (1.40-6.50); Neutrophils % (auto) 65.6 %; Platelet Count 124 K/uL (130-400); RDW Standard Deviation 40.2 fL (36.4-46.3); Red Blood Count 4.39 M/uL (4.70-6.10)
[2023-02-11 06:50] LABS: Albumin Level 3.3 gm/dl (3.4-5.0); BUN Creatinine Ratio 12.6 (10-20); Bilirubin Direct 0.2 mg/dl (0-0.2); Bilirubin,Total 0.8 mg/dl (0.2-1.0); Calcium 8.3 mg/dl (8.6-10.3); Creatinine Clr Calc Pharmacy 116.4 ml/min; Est GFR (African American) 103.3 ml/min; Est GFR (Non-African American) 89.1 ml/min; Magnesium 1.7 mg/dl (1.7-2.4); Potassium 3.6 mmol/L (3.5-5.1); Total Protein 5.9 gm/dl (6.0-8.3)
[2023-02-11] MEDS: PANTOprazole 40 MG TAB PO SCH (08:14)
[2023-02-11] MEDS: DOXYCYCLINE HYCLATE 100 MG in DEXTROSE 5% 100 ML IV SCH ×2 (08:16→19:59)
[2023-02-11] MEDS ORDERED: ALBUTEROL HFA 8 GM INHALER INH PRN (08:38)
--- NOTE | 2023-02-11 09:52 | XRay Report ---
XR chest 1V portable HISTORY: Follow-up pneumonia COMPARISON: Abdomen and pelvis CT 02/10/2023. FINDINGS: There is a trace right pleural effusion and right basilar linear densities. This is similar to the prior study. This favors subsegmental atelectasis. A pneumonia could also have a similar appe arance. No pneumothorax. There is mild elevation the right hemidiaphragm, unchanged. The heart remain s top normal in size. The left lung is clear. IMPRESSION: There is a trace right pleural effusion and right basilar linear densities. This is similar to the pr ior study. This favors subsegmental atelectasis. A pneumonia could also have a similar appearance. ACT 112: Negative or not required by law. Electronically signed by: Bony Julian M.D. 02/11/2023 9:50 AM
[2023-02-11] MEDS: FLUTICASONE FUROATE 200MCG 14 PUFFS/INHALER INH SCH (10:15)
--- NOTE | 2023-02-11 14:46 | Surgery Progress Note ---
Date of Service February 11, 2023 Assessment & Plan (1) Cholecystitis: Plan: Patient here with RUQ pain and concern for cholecystitis WBC 6.5, Tb 0.8, AST 22, ALT 27, AlkP 73. patients vitals are stable His pain is better, but still with some mild RUQ discomfort to deep palpation Appears he is overall improving on course of abx. will continue this for now in addition to allowing him a low fat diet Will make NPO at midnight if no improvement will consider OR this admission, otherwise may be able to complete a course of abx and plan for outpatient/elective lap corby Plan I have seen and examined this patient with the surgical PA. I agree with this plan. Admission and Anticipated Discharge Date Admission Date: February 11, 2023 Subjective Patient feeling a bit better regarding pain. No nausea/vomiting. Physical Exam Physical Exam: awake/alert, no distress Gastrointestinal (Abdomen): Inspection/Auscultation: abdomen not distended Percussion/Palpation: + abdomen tender (mild RUQ to deep palpation) and abdomen soft Results & Data Vital Signs (Past 12 Hours) Vital Signs Temp Pulse Resp BP Pulse Ox O2 Del Method 02/11/23 07:56 37.0 C 77 16 114/77 94 Room Air 02/11/23 03:24 Room Air PG Care Time/CCT Total # of Minutes Spent Total Time Spent with Patient: Total time spent is greater than 50% in coordination of care (as documented) at patient's floor/unit and/or counseling patient: Coding Level of Care Code 41055 SUB INP/OBS CARE 25MIN Diagnoses Cholecystitis K81.9
--- NOTE | 2023-02-11 17:56 | Communication Note ---
Date of Service: February 11, 2023 Post-Admission Addendum Mr. Tavarez is a 57 year old gentleman with history of asthma, GERD, and hypothyroidism who was admitted early 02/11 due to RUQ pain. Imaging suspicious for cholecystitis. Patient initially NPO and started on Zosyn. There was concern for pna, therefore an addition of doxycycline was added. Patient evaluated and states that his pain has improved since admission, but pain still with palpation along RUQ/epigastrum. Surgery on consult: Trial low fat diet, NPO at midnight, continue abx, reassess in am for continued improvment Hypothyroids-home synthroid GERD-protonix Asthma-resume formulary equivalent of scheduled inhaler SCDs
--- NOTE | 2023-02-11 23:16 | Electrocardiogram Report ---
Test Reason : Blood Pressure : / mmHG Vent. Rate : 092 BPM Atrial Rate : 092 BPM P-R Int : 132 ms QRS Dur : 082 ms QT Int : 342 ms P-R-T Axes : 049 -24 054 degrees QTc Int : 422 ms Normal sinus rhythm Nonspecific T wave abnormality When compared with ECG of 22-FEB-1996 22:45, No significant change Confirmed by Damaso Vidales ([id number]) on 02/11/2023 11:16:44 PM Referred By: REFERRED SELF Confirmed By:Damaso Vidales
[2023-02-12] MEDS: PIPERACILLIN/TAZOBACTAM 4.5 GM in DEXTROSE 5% 100 ML IV SCH ×2 (03:59→17:29)
[2023-02-12] MEDS: LEVOTHYROXINE SODIUM 175 MCG TABLET PO SCH (05:28)
[2023-02-12 06:20] LABS: Hematocrit (blood only) 38.7 % (42.0-52.0); Hemoglobin 13.3 g/dl (14.0-18.0); Mean Corpuscular Hemoglobin 31.3 pg (25.0-34.0); Mean Corpuscular Hgb Conc 34.4 g/dL (32.0-36.0); Mean Corpuscular Volume 91.1 fL (80.0-100.0); Mean Platelet Volume 12.1 fL (9.4-12.4); Platelet Count 122 K/uL (130-400); RDW Coefficient of Variation 11.9 % (11.5-14.5); RDW Standard Deviation 39.9 fL (36.4-46.3); Red Blood Count 4.25 M/uL (4.70-6.10); White Blood Count 5.39 K/ul (4.8-10.8)
[2023-02-12 06:32] LABS: BUN Creatinine Ratio 13.8 (10-20); Calcium 8.3 mg/dl (8.6-10.3); Creatinine Clr Calc Pharmacy 127.2 ml/min; Est GFR (African American) 111.8 ml/min; Est GFR (Non-African American) 96.5 ml/min; Potassium 3.1 mmol/L (3.5-5.1)
[2023-02-12] MEDS: PANTOprazole 40 MG TAB PO SCH (08:07)
[2023-02-12] MEDS: DOXYCYCLINE HYCLATE 100 MG in DEXTROSE 5% 100 ML IV SCH ×2 (08:59→19:53)
[2023-02-12] MEDS: FLUTICASONE FUROATE 200MCG 14 PUFFS/INHALER INH SCH (09:02)
--- NOTE | 2023-02-12 09:56 | Anesthesiology Consultation ---
Date of Service February 12, 2023 Assessment & Plan Chart Review Chart Review: Acceptable Risk for Surgery and Patient NOT seen in Pre Admission Testing Consults Requested none ASA ASA3 Proposed Anesthesia Anesthesia Type: General History Surgery Operation Date: 02/12/23 10:55 Proposed Procedures p Laparoscopic Cholecystectomy - Ita Castro DO Height/Weight Height: 5 ft 9 in Weight: 131 kg Allergies Allergy/AdvReac Type Severity Reaction Status Date / Time No Known Allergies Allergy Verified 02/10/23 22:58 Medications Home Medications Medication Instructions Recorded Confirmed Last Taken levothyroxine 175 mcg tablet 175 mcg PO QAM 11/19/22 02/10/23 12/20/22 04:30 pantoprazole 40 mg tablet,delayed 40 mg PO QAM 11/19/22 02/10/23 12/20/22 04:30 release Active Medications Generic Name Dose Route Start Last Admin Trade Name Freq PRN Reason Stop Dose Admin Fluticasone Furoate 1 puffs 02/11/23 09:00 02/12/23 09:02 Fluticasone Furoate 200mcg 14 Puffs/Inhaler INH 03/13/23 08:59 Not Given DAILY RICARDO Hydromorphone HCl 0.5 mg 02/11/23 02:56 02/11/23 20:00 Hydromorphone Inj 0.5 Mg/0.5 Ml Syr IV 02/25/23 02:55 0.5 mg Q3H PRN Administration Pain Piperacillin Sod/Tazobactam 120 mls @ 30 mls/hr 02/11/23 04:00 02/12/23 08:07 Sod 4.5 gm/ Dextrose IV 02/21/23 03:59 Infused Q8H RICARDO Infusion Protocol Doxycycline Hyclate 100 mg/ 110 mls @ 50 mls/hr 02/11/23 08:00 02/12/23 08:59 Dextrose IV 02/18/23 07:59 50 mls/hr Q12H RICARDO Administration Dextrose/Sodium Chloride 1,000 mls @ 125 mls/hr 02/11/23 02:56 02/11/23 18:41 D5w And 1/2nss IV 03/13/23 02:55 Infused .Q8H RICARDO Infusion Levothyroxine Sodium 175 mcg 02/11/23 06:30 02/12/23 05:28 Levothyroxine Sodium 175 Mcg Tablet PO 03/13/23 06:29 Not Given DAILYBB RICARDO Pantoprazole Sodium 40 mg 02/11/23 09:00 02/12/23 08:07 Pantoprazole 40 Mg Tab PO 03/13/23 08:59 Not Given QAM [facility] Past Medical History Medical History Chronic back pain Chronic cough s/p covid-19 virus in 2020. reason for flovent GERD (gastroesophageal reflux disease) H/O carbuncle of skin and subcutaneous tissue Hip deformity, congenital follows with animal daycare provider on a regular basis History of COVID-19 2020 - severe symptoms, no hospitalization. still has not fully regained his full smell nor full taste and a lingering cough since. Hx of colonic polyps Hypothyroidism Osteoarthritis morbid obesity ASCVD Ao Exercise / Class Metabolic Activity II 4-5 Yardwork/Stairs/Walk up hill Past Family History Family History Other No family history of adverse response to anesthesia Past Surgical History Surgical History H/O removal of cyst removal of carbuncle of the axilla as a child History of cataract surgery History of colonoscopy Past Anesthesia History No Hx of Anesthesia Complications and No Family Hx of Anesthesia Complications History of PONV No Hx of PONV and No Hx of Motion Sickness Social History Smoking Status: Former smoker tobacco type: cigarettes Do You Dip or Chew Tobacco: No Hx Alcohol Use: Yes Alcohol type: beer alcohol intake frequency: holidays/special occasions only Hx Substance Use: No substance use type: does not use Physical Exam Vital Signs Last Vital Signs Temp 37 C 02/12/23 07:44 Pulse 69 02/12/23 07:44 Resp 22 02/12/23 07:44 BP 123/85 02/12/23 07:44 Pulse Ox 94 02/12/23 07:44 O2 Del Method Room Air 02/12/23 07:44 Testing Laboratory Results 02/12/23 05:49 02/12/23 05:49 Urine Color Dark Yellow 02/10/23 20:24 Urine Appearance Clear (Clear) 02/10/23 20:24 Urine pH 5.5 (4.5-7.5) 02/10/23 20:24 Ur Specific [place] > 1.045 (1.000-1.030) H 02/10/23 20:24 Urine Protein Negative (Negative) 02/10/23 20:24 Urine Glucose (UA) Negative (Negative) 02/10/23 20:24 Urine Ketones Trace (Negative) H 02/10/23 20:24 Urine Nitrite Negative (Negative) 02/10/23 20:24 Ur Leukocyte Esterase Negative (Negative) 02/10/23 20:24 Electrocardiogram Date: 02/11/23 Findings: + NSR @ (@ 92;Non-specific T wave abnormality)
[2023-02-12] MEDS: POTASSIUM CHLORIDE / WTR 10 MEQ/100 ML PLCT IV SCH ×4 (10:19→17:05)
[2023-02-12] MEDS ORDERED: PROMETHAZINE HCL 6.25 MG in SODIUM CHLORIDE 0.9% 50 ML IV PRN (11:48)
[2023-02-12] MEDS ORDERED: ONDANSETRON INJ 2 MG/ML 2 ML VIAL IV PRN (11:48)
[2023-02-12] MEDS ORDERED: ATROPINE SULFATE 0.1 MG/ML 10ML SYR IV PRN (11:48)
[2023-02-12] MEDS ORDERED: ePHEDrine sulfate 50 MG/ML AMP IV PRN (11:48)
[2023-02-12] MEDS ORDERED: LIDOCAINE 2% 2 ML VIAL/AMP(20MG/ML) INFIL ONE (11:53)
[2023-02-12] MEDS ORDERED: ROCURONIUM BROMIDE 10 MG/ML 5 ML VIAL IV ONE (11:53)
[2023-02-12] MEDS ORDERED: MIDAZOLAM HCL 1 MG/ML 2ML VIAL ONE (11:53)
[2023-02-12] MEDS ORDERED: PROPOFOL IV EMULSION 10 MG/ML 20 ML VIAL IV ONE (11:53)
[2023-02-12] MEDS ORDERED: fentaNYL citrate PF 100 MCG/2 ML VIAL ONE ×2 (11:53→15:04)
[2023-02-12] MEDS ORDERED: NEOSTIGMINE METHYLSULFATE 1 MG/ML 10ML VIAL ONE (11:53)
[2023-02-12] MEDS ORDERED: GLYCOPYRROLATE 0.2 MG/ML VIAL ONE (11:53)
--- NOTE | 2023-02-12 12:56 | Surgery Progress Note ---
Date of Service February 12, 2023 Assessment & Plan (1) Cholecystitis: Plan: The patient will be taken to the operating room for laparoscopic cholecystectomy. The details of the procedure have been explained to him including the risks and benefits. He expressed understanding of this explanation and all of his questions were answered. Consent was obtained. Admission and Anticipated Discharge Date Admission Date: February 11, 2023 Subjective Patient was seen and examined this am. He says he started to have RUQ pain overnight and still has soreness this am. He says he also has some nausea. Physical Exam Constitutional: + obese; no acute distress, not ill appearing and not diaphoretic Respiratory: normal respiratory effort; no respiratory distress, no labored breathing and does not use accessory muscles Gastrointestinal (Abdomen): Abdomen tender Results & Data Vital Signs (Past 12 Hours) Vital Signs Temp Pulse Resp BP Pulse Ox O2 Del Method 02/12/23 11:42 36.9 C 75 20 156/102 H 95 Room Air 02/12/23 07:44 37 C 69 22 123/85 94 Room Air PG Care Time/CCT Total # of Minutes Spent Total Time Spent with Patient: Total time spent is greater than 50% in coordination of care (as documented) at patient's floor/unit and/or counseling patient: Coding Level of Care Code 27620 SUB INP/OBS CARE 07/04MIN Diagnoses Cholecystitis K81.9
[2023-02-12] MEDS ORDERED: BUPIVACAINE/EPINEPHRINE 0.5% MPF 1:200,000 10 ML VIAL ONE (13:20)
[2023-02-12] MEDS ORDERED: SUCCINYLCHOLINE CHLORIDE 20 MG/ML 10 ML VIAL IV ONE (13:42)
[2023-02-12] MEDS ORDERED: ONDANSETRON INJ 2 MG/ML 2 ML VIAL ONE (13:42)
[2023-02-12] MEDS ORDERED: PHENYLEPHRINE 100MCG/ML 5ML SYR ONE (13:42)
[2023-02-12] MEDS ORDERED: DEXAMETHASONE SOD INJ 4 MG/ML VIAL ONE (13:42)
[2023-02-12] MEDS ORDERED: SUGAMMADEX SODIUM 200 MG/2 ML VIAL IV ONE (14:57)
[2023-02-12] MEDS: fentaNYL citrate PF 100 MCG/2 ML VIAL IV PRN ×4 (15:27→15:51)
--- NOTE | 2023-02-12 15:48 | Operative Report ---
PG Post Operative Report Pre & Post Diagnosis Operation Date: 02/12/23 10:55 Pre-Op Diagnosis: Cholecystitis Post-Op Diagnosis: Cholecystitis I identified the patient and participated in the time-out.: Yes Procedure Operation Date: 02/12/23 10:55 Actual Procedures p Laparoscopic Cholecystectomy(Not Applicable) - Ita Castro DO Surgeon Ita Castro DO Laboratory Helper ARNEL Stewart and Jasper Lindsey Estimated Blood Loss 10 Findings Consistent with Post-Op Diagnosis Gangrenous gallbladder Specimens Gallbladder Drains 10 Swiss IFTIKHAR Anesthesia Type General Complications None Indications Acute cholecystitis Description of Procedure The patient was brought to the operating room and placed on the operating room i n supine position. SCDs were applied to bilateral lower extremities. The patient was connected to cardiac and oxygen monitoring and general anesthesia was administered. A secured airway was obtained. The abdomen was prepped and draped in typical sterile fashion. A timeout was conducted. Local anesthetic was injected into the skin just above the umbilicus and a stab incision was made with an 11 blade. A towel clamp was used to elevate the fascia and the Veress needle was used to access the intra-abdominal space. CO2 insufflation was initiated to a goal pressure of 15 mmHg. Once pneumoperitoneum was established a 5 mm trocar was inserted using direct visualization with a 5 mm laparoscope and Visiport. Local anesthetic was then injected at the epigastric area and a 12 mm trocar was inserted under direct visualization after making an incision with an 11 blade. 2 additional 5 mm trocars were inserted in the same fashion and under direct visualization along the right subcostal mar gin. There was no injury to surrounding structures on the insertion of the trocars. The intra-abdominal space was inspected and the colon was noted running anteriorly to the liver. The OR table was positioned in reverse Trendelenburg and left side down to help move this organ from the surgical site. Eventually the omentum was noted over the gallbladder which appeared to have bright green gangrenous areas on its surface at the fundus. Gentle dissection alternating blunt suction with cautery was used to dissect the omentum away from the gallbladder. The infundibulum could not be identified until further dissection was performed. Eventually a gangrenous infundibulum was also identified. Once this was able to be controlled with a grasper the cystic duct was identified leading directly into the infundibulum of the gallbladder. The cystic duct was then ligated with a 5 mm clip safe deposit clerk using 2 clips proximally and 1 distally. The cystic duct was then transected with a laparoscopic s cissor. The cystic artery was then identified posterior to this and very thickened fibrinous material. This structure was also ligated and transected in the same fashion as the cystic duct was. The gallbladder was cauterized away from the liver bed. Bleeding was controlled with cautery. There was gallbladder spillage as the wall of the gallbladder was extremely thin, edematous and gangrenous. The gallbladder was removed. The epigastric incision needed to be increased in size in order to aid in the removal of the gallbladder. The gallbladder was sent to pathology for further analysis. The right upper quadrant was copiously irrigated and suction. Hemostasis was rechecked several times and cautery was used to make sure hemostasis was achieved at the liver bed. The right upper quadrant was copiously irrigated and suction with 2 L of normal saline. A 10 Swiss IFTIKHAR drain was inserted at the right upper quadrant. Pneumoperitoneum was evacuated, all trocars and instruments were removed. The epigastric incision was closed with 0 Vicryl suture. The subcutaneous tissue at this location was closed with 3-0 Vicryl suture. 4-0 Vicryl suture was used at all incision sites. Skin glue was used to seal the incisions. The drain was sutured to the skin using a nylon suture and a drain sponge was used to cover this area. The patient tolerated the procedure well. He was awakened from anesthesia, the secure airway was removed and he was transferred to recovery in stable condition. Upon waking the patient woke up coughing and pressure had to be applied to his epigastric incision to keep area from opening after suturing of the fascia at this location. I attest to the content of the Intraoperative Record and any orders documented therein. Any exceptions are noted below.
--- NOTE | 2023-02-12 16:30 | Anesthesiology Progress Note ---
Date of Service February 12, 2023 Anesthesia Post Procedure Vital Signs Vital Signs: Temp Pulse Pulse Pulse Resp BP BP 02/12/23 16:10 90 20 131/84 02/12/23 15:50 86 19 131/80 02/12/23 15:40 90 21 124/79 02/12/23 15:30 88 20 132/84 02/12/23 16:20 87 13 121/79 02/12/23 16:00 97.5 F L 87 17 127/83 02/12/23 15:23 99.1 F 89 24 136/82 02/12/23 11:42 98.4 F 75 20 156/102 H 02/12/23 07:44 98.6 F 69 22 123/85 02/11/23 19:56 98.2 F 61 18 128/88 Pulse Ox O2 Del Method O2 Flow Rate 02/12/23 16:10 95 Nasal Cannula 2 02/12/23 15:50 95 Oxymask 2 02/12/23 15:40 95 Oxymask 4 02/12/23 15:30 97 Oxymask 6 02/12/23 16:20 95 Nasal Cannula 2 02/12/23 16:00 96 Nasal Cannula 2 02/12/23 15:23 94 Oxymask 6 02/12/23 11:42 95 Room Air 02/12/23 07:44 94 Room Air 02/11/23 19:56 93 Room Air Pain Intensity Abdomen: Pain Intensity: 2 Transfer of Care Handoff Completed per policy Notes Mental Status: alert / awake / arousable and participated in evaluation Patient Amnestic to Procedure: Yes Nausea / Vomiting: adequately controlled Pain: adequately controlled Airway Patency, RR, SpO2: stable & adequate BP & HR: stable & adequate Hydration State: stable & adequate Anesthetic Complications: no major complications apparent and Pt Satisfied with anesthetic care
[2023-02-12] MEDS ORDERED: oxyCODONE HCL IR 5 MG TAB (IMMEDIATE RELEASE) PO PRN ×2 (16:44)
[2023-02-12] MEDS: D5W AND 1/2NSS 1,000 ML IV SCH (18:25)
[2023-02-12] MEDS ORDERED: Nursing to Pharmacy Communication SCH (19:45)
[2023-02-12] MEDS: ACETAMINOPHEN 325 MG TAB PO PRN (19:53)
--- NOTE | 2023-02-12 23:14 | Hospitalist Progress Note ---
Date of Service February 12, 2023 Assessment & Plan (1) Cholecystitis: Plan: Mr. Tavarez is a 57-year-old male with history of asthma, hypothyroidism, and HLD who presented with RUQ abdominal pain and found to have cholecystitis. Patient initially seemed to improved with abx and conservative management; however, after starting a low fat diet, patient's symptoms returned--prompting cholecystectomy 02/12/2023. # Acute Cholecystitis Abdominal pain since last s/p cholecystectomy 02/12 #Possible pneumonia -Started empirically on admission given CT findings, XR w/o consolidation, no WBC, no O2 requirement Patient denies any resp concerns, discontinue abx now s/p corby #Erosive changes L2-L3 On CT abdomen pelvis Currently no complaints of back pain and no spinal tenderness #Hypothyroidism continue Synthyroid #Asthma continue home inhalers, added IS to prevent postop atelectasis #GERD continue Protonix DVT prophylaxis SCDs for now Disposition medical floor Full code Admission and Anticipated Discharge Date Admission Date: February 11, 2023 Subjective Patient was seen and examined this am. He says he started to have RUQ pain and didn't tolerate his meal in the evening. Patient states surgery planned for the afternoon. Patient denied any vomiting or pain when NPO. Patient nervous for procedure, but understands risks given family history of gallbladder perforation Review of Systems Review of Systems: All systems reviewed & are unremarkable except as noted in Subjective Physical Exam Constitutional: WD/WN, vitals as above Eyes: right eye esotropia Respiratory: normal respiratory effort, lungs clear to auscultation Cardiovascular: RRR, no murmur, no edema Gastrointestinal (Abdomen): large, soft abdomen, tenderness to moderate palpation RUQ Musculoskeletal: no cyanosis or clubbing, extremities motor strength 5/5 Skin: no rashes, warm and dry Results & Data Results & Data Vital Signs (Past 12 Hours) Vital Signs Temp Pulse Pulse Pulse Resp BP Pulse Ox 02/12/23 22:37 36.7 C 85 18 130/84 90 02/12/23 20:05 02/12/23 20:05 37.1 C 88 18 144/72 H 93 02/12/23 18:55 36.7 C 102 H 16 143/90 H 93 02/12/23 17:50 91 H 16 131/80 94 02/12/23 17:17 36.7 C 89 16 134/88 92 02/12/23 16:50 36.9 C 91 H 18 146/90 H 94 02/12/23 16:40 84 13 122/79 96 02/12/23 16:10 90 20 131/84 95 02/12/23 15:50 86 19 131/80 95 02/12/23 15:40 90 21 124/79 95 02/12/23 15:30 88 20 132/84 97 02/12/23 16:20 87 13 121/79 95 02/12/23 16:00 36.4 C L 87 17 127/83 96 02/12/23 15:23 37.3 C 89 24 136/82 94 02/12/23 11:42 36.9 C 75 20 156/102 H 95 O2 Del Method O2 Flow Rate 02/12/23 22:37 Room Air 02/12/23 20:05 Room Air 02/12/23 20:05 Room Air 02/12/23 18:55 Room Air 02/12/23 17:50 Nasal Cannula 2 02/12/23 17:17 Nasal Cannula 2 02/12/23 16:50 Nasal Cannula 2 02/12/23 16:40 Nasal Cannula 2 02/12/23 16:10 Nasal Cannula 2 02/12/23 15:50 Oxymask 2 02/12/23 15:40 Oxymask 4 02/12/23 15:30 Oxymask 6 02/12/23 16:20 Nasal Cannula 2 02/12/23 16:00 Nasal Cannula 2 02/12/23 15:23 Oxymask 6 02/12/23 11:42 Room Air Laboratory Results Short CBC 02/12/23 Range/Units 05:49 WBC 5.39 (4.8-10.8) K/ul Hgb 13.3 L (14.0-18.0) g/dl Hct 38.7 L (42.0-52.0) % Plt Count 122 L (130-400) K/uL BMP 02/12/23 05:49 Sodium 138 Potassium 3.1 L Chloride 103 Carbon Dioxide 29 BUN 12 Creatinine 0.87 Glucose 98 Calcium 8.3 L Diagnostic Findings No new data for review Medications Administered Home Medications Medication Instructions Recorded Confirmed Last Taken levothyroxine 175 mcg tablet 175 mcg PO QAM 11/19/22 02/10/23 12/20/22 04:30 pantoprazole 40 mg tablet,delayed 40 mg PO QAM 11/19/22 02/10/23 12/20/22 04:30 release Active Medications Generic Name Dose Route Start Last Admin Trade Name Fresylvia PRN Reason Stop Dose Admin Acetaminophen 650 mg 02/11/23 02:56 02/12/23 19:53 Acetaminophen 325 Mg Tab PO 03/13/23 02:55 650 mg Q4H PRN Administration pain/fever Fluticasone Furoate 1 puffs 02/11/23 09:00 02/12/23 09:02 Fluticasone Furoate 200mcg 14 Puffs/Inhaler INH 03/13/23 08:59 Not Given DAILY RICARDO Hydromorphone HCl 0.5 mg 02/11/23 02:56 02/11/23 20:00 Hydromorphone Inj 0.5 Mg/0.5 Ml Syr IV 02/25/23 02:55 0.5 mg Q3H PRN Administration Pain Piperacillin Sod/Tazobactam 120 mls @ 30 mls/hr 02/11/23 04:00 02/12/23 21:42 Sod 4.5 gm/ Dextrose IV 02/21/23 03:59 Infused Q8H RICARDO Infusion Protocol Doxycycline Hyclate 100 mg/ 110 mls @ 50 mls/hr 02/11/23 08:00 02/12/23 22:06 Dextrose IV 02/18/23 07:59 Infused Q12H RICARDO Infusion Dextrose/Sodium Chloride 1,000 mls @ 125 mls/hr 02/11/23 02:56 02/12/23 18:25 D5w And 1/2nss IV 03/13/23 02:55 125 mls/hr .Q8H RICARDO Administration Levothyroxine Sodium 175 mcg 02/11/23 06:30 02/12/23 05:28 Levothyroxine Sodium 175 Mcg Tablet PO 03/13/23 06:29 Not Given DAILYBB RICARDO Ondansetron HCl 4 mg 02/11/23 02:56 02/12/23 19:53 Ondansetron Inj 2 Mg/Ml 2 Ml Vial IV 03/13/23 02:55 4 mg Q6H PRN Administration Nausea Pantoprazole Sodium 40 mg 02/11/23 09:00 02/12/23 08:07 Pantoprazole 40 Mg Tab PO 03/13/23 08:59 Not Given QAM RICARDO
[2023-02-13] MEDS: LEVOTHYROXINE SODIUM 175 MCG TABLET PO SCH (05:30)
[2023-02-13 07:52] LABS: Basophils # (auto) 0.01 K/uL (0.00-0.20); Basophils % (auto) 0.1 %; Hematocrit (blood only) 38.4 % (42.0-52.0); Hemoglobin 13.7 g/dl (14.0-18.0); Immature Granulocytes # (auto) 0.02 K/uL (0.01-0.20); Immature Granulocytes % (auto) 0.3 %; Lymphocytes # (auto) 0.68 K/uL (1.20-3.40); Lymphocytes % (auto) 9.4 %; Mean Corpuscular Hemoglobin 32.2 pg (25.0-34.0); Mean Corpuscular Hgb Conc 35.7 g/dL (32.0-36.0); Mean Corpuscular Volume 90.1 fL (80.0-100.0); Mean Platelet Volume 11.8 fL (9.4-12.4); Monocytes # (auto) 0.66 K/uL (0.11-0.59); Monocytes % (auto) 9.1 %; Neutrophils # (auto) 5.86 K/uL (1.40-6.50); Neutrophils % (auto) 81.1 %; Platelet Count 156 K/uL (130-400); RDW Coefficient of Variation 11.8 % (11.5-14.5); RDW Standard Deviation 38.7 fL (36.4-46.3); Red Blood Count 4.26 M/uL (4.70-6.10); White Blood Count 7.23 K/ul (4.8-10.8)
[2023-02-13 08:10] LABS: Albumin Globulin Ratio 1.2 (0.9-2); Albumin Level 3.4 gm/dl (3.4-5.0); BUN Creatinine Ratio 12.3 (10-20); Bilirubin,Total 0.6 mg/dl (0.2-1.0); Calcium 8.6 mg/dl (8.6-10.3); Creatinine Clr Calc Pharmacy 151.5 ml/min; Est GFR (African American) 120.2 ml/min; Est GFR (Non-African American) 103.7 ml/min; Globulin 2.8 gm/dl (2.5-4.0); Potassium 3.9 mmol/L (3.5-5.1); Total Protein 6.2 gm/dl (6.0-8.3)
[2023-02-13] MEDS: PANTOprazole 40 MG TAB PO SCH (09:24)
[2023-02-13] MEDS: FLUTICASONE FUROATE 200MCG 14 PUFFS/INHALER INH SCH (09:24)
--- NOTE | 2023-02-13 10:50 | Surgery Progress Note ---
Date of Service February 13, 2023 Assessment & Plan (1) Gangrenous cholecystitis: Plan: Patient has done well postoperatively. He has remained hemodynamically stable and afebrile overnight. He is without leukocytosis this morning. Total bilirubin is within normal limits. His diet may be advanced to low-fat diet. The patient may be discharged home with outpatient follow-up The IFTIKHAR drain will remain in place until he is seen in the office at his postoperative follow-up. Continue to measure drain output and record daily to bring to the office. No lifting more than 15 to 20 pounds Wear abdominal binder while up and walking around Keep abdomen dry, no showering with a IFTIKHAR drain. Keep the drain area dry. Admission and Anticipated Discharge Date Admission Date: February 11, 2023 Subjective Patient seen and examined this morning. The patient denies nausea and states that he does feel better with mild residual soreness at the right upper quadrant. He has been tolerating clear liquids Physical Exam Constitutional: + obese; no acute distress, not ill appearing and not diaphoretic Gastrointestinal (Abdomen): Abdomen is robust/obese, soft. Surgical incisions are without evidence of infection and intact. IFTIKHAR drain with a small amount of serosanguineous drainage. 65 mL recorded in drainage overnight. Results & Data Vital Signs (Past 12 Hours) Vital Signs Temp Pulse Resp BP Pulse Ox O2 Del Method 02/13/23 07:25 36.7 C 76 16 142/94 H 94 Room Air 02/13/23 02:16 36.6 C 83 18 146/80 H 93 Room Air Laboratory Results WBC 7.23 T. bili 0.6 PG Care Time/CCT Total # of Minutes Spent Total Time Spent with Patient: Total time spent is greater than 50% in coordination of care (as documented) at patient's floor/unit and/or counseling patient: Coding Level of Care Code 68961 Post Operative Follow-Up Diagnoses Gangrenous cholecystitis K81.0
[2023-02-13] MEDS ORDERED: PIPERACILLIN/TAZOBACTAM 4.5 GM in DEXTROSE 5% 100 ML IV ONE (11:00)
[2023-02-13] MEDS: ACETAMINOPHEN 325 MG TAB PO PRN (11:19)
--- NOTE | 2023-02-13 13:07 | Discharge Summary ---
Discharge Summary Date of Service February 13, 2023 Notes For Next Care Provider Patient admitted to hospital secondary to abdominal pain. Was found to have acute cholecystitis. Underwent laparoscopic cholecystectomy on 02/12/2023 and tolerated the procedure well. He is being discharged home with IFTIKHAR drain in place. Once drain output minimal will be removed by surgery in office. He is being discharged on 7-day course of ciprofloxacin and Flagyl to complete. Medication Changes From Visit Ciprofloxacin 500 mg every 12 hours x7 days, next dose due evening on 02/13/2023 Metronidazole 500 mg every 8 hours x7 days, next dose due evening on 02/13/2023 Florastor 250 mg 1 tablet daily, this is a probiotic to take while on antibiotics. Oxycodone 5 to 10 mg every 6 hours as needed for severe pain. Recommend utilizing Tylenol 500 mg every 6 hours for mild to moderate pain. If taking oxycodone, recommend taking daily stool softener to prevent constipation. This can be purchased over the counter (example: Colace, Mirlax) Admission HPI Per Admitting Provider 57-year-old male with past med significant for hypothyroidism, GERD, obesity presents with severe abdominal pain starting last . Pain is more on the right side radiating to back and epigastric regions. Associate with nausea and vomiting. No diarrhea or constipation. Denies any blood in stools or black stools. Normal bladder movements. Denies any fevers. No chest pain or shortness of breath. Denies cough. No headache. Vision is okay. No earache or runny nose or sore throat. Currently resting comfortably and hemodynamically stable Past medical history as mentioned above Past surgical history colonoscopy Social history smoked 1 pack a day for 15 years quit in 2009. Alcohol rarely. No drug use. Family history father had colon cancer at age of 65. Mother had colon cancer at age of 49. Brother by TN at age 45. Father had TN. Admission Exam Per Admitting Provider Physical Exam: General- Not in distress Head- atraumatic Eyes- PERRL. ENT- oropharynx clear Neck- supple, no JVD, Lungs- clear to auscultation no wheezing or crackles. Heart- regular rate and rhythm; no murmur, no gallop. Abdomen- normal bowel sounds, soft, nontender, no distension. Extremities- no pretibial edema, no erythema seen. Neuro- alert, oriented x 3; PERRL, no facial palsy; no dysarthria; Non focal. Musculoskeletal No spinal tenderness. Skin- warm & dry Principal Dx & Hospital Course #1 = Principal Diagnosis (1) Cholecystitis: Mr. Tavarez is a 57-year-old male with history of asthma, hypothyroidism, and HLD who presented with RUQ abdominal pain and found to have cholecystitis. Patient initially seemed to improved with abx and conservative management; however, after starting a low fat diet, patient's symptoms returned--prompting cholecystectomy 02/12/2023. He tolerated the procedure well. Initially he was empirically treated with IV Zosyn and this will be de-escalated to ciprofloxacin and Flagyl at discharge. He will complete a 7-day course. He does have a IFTIKHAR drain in place and this will continue until drainage is minimal and will be removed by general surgery in office. On day of discharge she was tolerating a low-fat diet without any nausea or vomiting. Incidentally on initial CT abdomen pelvis that revealed acute cholecystitis also noted was a questionable right lower lobe airspace opacity concerning for pneumonia or aspiration. Patient denied any respiratory symptoms, cough or shortness of breath. He was saturating well on room air and did not become hypoxic therefore likely no acute infection. Also noted on CT abdomen pelvis was erosive changes of L2-L3 which may be degenerative, but cannot exclude discitis/osteomyelitis. Pt denies any back pain and does not have any pinpoint tenderness so more likely DDD. If pt does develop such would recommend dedicated MRI of lumbar spine. His chronic medical comorbidities remained stable through hospital stay. On day of discharge he was feeling much improved, incisional/abd pain noted and expected, passing flatus and tolerating Diet. His vitals were stable. He is being discharged home with who was at bedside. All questions were answered. Discharge Exam Gen: WD/WN, NAD, A&O x3 HEENT: Normocephalic, atraumatic, conjunctivae moist, sclerae anicteric, right eye esotropia, mucous membranes moist. Lung: Clear to Auscultation bilaterally, no wheezes/rales/rhonchi Heart: Regular rate, regular rhythm, no murmurs, rubs, or gallops Abdomen: Soft, large, NT, ND , laparoscopic incisions noted, CDI, IFTIKHAR drain with serosanguineous drainage, abdominal binder placed Extremities: No edema Skin: Warm, no rash, negative turgor. Updated Medication List Medication Instructions Recorded Confirmed Type levothyroxine 175 mcg tablet 175 mcg PO QAM 11/19/22 02/10/23 History pantoprazole 40 mg tablet,delayed 40 mg PO QAM 11/19/22 02/10/23 History release Saccharomyces boulardii 250 mg 250 mg PO DAILY #7 caps 02/13/23 Rx capsule (Florastor) ciprofloxacin HCl 500 mg tablet 500 mg PO Q12H #14 tabs 02/13/23 Rx (Cipro) metronidazole 500 mg tablet 500 mg PO Q8H 7 days #21 tabs 02/13/23 Rx oxycodone 5 mg tablet 5 - 10 mg PO .[id number] PRN pain #7 02/13/23 Rx tabs Hospital Stay Data Consultations 02/10/23 21:57 ED Decision to Admit Stat 02/11/23 05:50 Consult General Surgery Routine Procedures Performed Operation Date: 02/12/23 10:55 Actual Procedures p Laparoscopic Cholecystectomy(Not Applicable) - Ita Castro DO Diagnostic Imagining Performed Abdomen/Pelvis CT 02/10/23 17:31 Exam(s): CT ABDOMEN + PELVIS With Contrast IV Amt: 92 ml optiray 320 EXAM: CT Abdomen and Pelvis With Intravenous Contrast CLINICAL HISTORY: Abdominal pain. TECHNIQUE: Axial computed tomography images of the abdomen and pelvis with intravenous contrast. Automated exposure control was utilized for the study. A dose lowering technique was utilized adhering to the principles of ALARA. CONTRAST: Patient received 92 ml optiray 320 of IV contrast COMPARISON: No relevant prior studies available. FINDINGS: Lung bases: Right lower lobe airspace opacities concerning for pneumonia and/or aspiration. Pleural space: Trace right pleural effusion. ABDOMEN: Liver: Unremarkable. No mass. Gallbladder and bile ducts: Distended gallbladder with prominent wall and pericholecystic fluid is noted. The fluid extends inferiorly surrounding the proximal duodenum and common bile duct. Pancreas: Unremarkable. No mass. No ductal dilation. Spleen: Unremarkable. No splenomegaly. Adrenals: Unremarkable. No mass. Kidneys and ureters: Punctate nonobstructing right renal calculus. No hydronephrosis of either kidney. Stomach and bowel: Thickening of the duodenum and colon at the hepatic flexure are likely reactive. PELVIS: Appendix: Normal appendix. Bladder: Unremarkable. No mass. Reproductive: Unremarkable as visualized. ABDOMEN and PELVIS: Intraperitoneal space: Unremarkable. No free air. No significant fluid collection. Bones/joints: There are degenerative changes of the spine. No acute fracture. No dislocation. Soft tissues: Small bilateral fat-containing umbilical hernias. There is a small fat-containing umbilical hernia. Vasculature: Mild atherosclerosis. No abdominal aortic aneurysm. Lymph nodes: Unremarkable. No enlarged lymph nodes. IMPRESSION: 1. Distended gallbladder with prominent wall and pericholecystic fluid is noted. The fluid extends inferiorly surrounding the proximal duodenum and common bile duct. The differential includes acute cholecystitis and ascending cholangitis. 2. Right lower lobe airspace opacities concerning for pneumonia and/or aspiration. 3. Punctate nonobstructing right renal calculus. No hydronephrosis of either kidney. 4. Thickening of the duodenum and colon at the hepatic flexure are likely reactive. 5. Trace right pleural effusion. 6. Erosive employed changes of L2-L3 may be degenerative, cannot exclude discitis/osteomyelitis. Electronically signed by: Zenaida Ricardo MD 02/10/23 21:20 PM Gallbladder Ultrasound 02/10/23 22:05 Exam(s): US GALLBLADDER EXAM: US Abdomen Limited, Gallbladder CLINICAL HISTORY: Cholecystitis. TECHNIQUE: Real-time ultrasound of the right upper quadrant with image documentation. COMPARISON: No relevant prior studies available. FINDINGS: Liver: The liver measures 16.2 cm. There is increase echogenicity of the liver parenchyma. No mass. Gallbladder: Cholelithiasis. Mildly thickened gallbladder wall and pericholecystic fluid are concerning for acute cholecystitis. Common bile duct: The common bile duct is not visualized due to overlying bowel gas. Pancreas: The pancreatic head and body are within normal limits. The tail is not visualized due to overlying bowel gas. Right kidney: The right kidney measures 12.5 cm. IMPRESSION: 1. Cholelithiasis. Mildly thickened gallbladder wall and pericholecystic fluid are concerning for acute cholecystitis. 2. Fatty infiltration of the liver. Electronically signed by: Zenaida Ricardo MD 02/10/23 23:30 PM Chest X-Ray 02/11/23 08:22 XR chest 1V portable HISTORY: Follow-up pneumonia COMPARISON: Abdomen and pelvis CT 02/10/2023. FINDINGS: There is a trace right pleural effusion and right basilar linear densities. This is similar to the prior study. This favors subsegmental atelectasis. A pneumonia could also have a similar appearance. No pneumothorax. There is mild elevation the right hemidiaphragm, unchanged. The heart remains top normal in size. The left lung is clear. IMPRESSION: There is a trace right pleural effusion and right basilar linear densities. This is similar to the prior study. This favors subsegmental atelectasis. A pneumonia could also have a similar appearance. ACT 112: Negative or not required by law. Electronically signed by: Bony Julian M.D. 02/11/2023 9:50 AM Pending Results Patient Have Any Pending Studies at Discharge: Yes (Gallbladder pathology) Discharge Instructions Given to Patient (Per Discharging Provider) You have surgical glue called dermabond on your surgical site incisions. You may shower with this on. This will tend to come off within a couple of weeks. Do not pick at it. You have a surgical drain call office if you notice you are not getting any drainage from bulb, as it maybe removed then, otherwise you will keep it and it will be removed at the general surgical office during your follow appointment in 2 weeks. Keep a log and bring it to the office of the daily output Wear abdominal binder while up and walking around MEDICATION CHANGES: Ciprofloxacin 500 mg every 12 hours x7 days, next dose due evening on 02/13/2023 Metronidazole 500 mg every 8 hours x7 days, next dose due evening on 02/13/2023 Florastor 250 mg 1 tablet daily, this is a probiotic to take while on antibiotics. Oxycodone 5 to 10 mg every 6 hours as needed for severe pain. Recommend utilizing Tylenol 500 mg every 6 hours for mild to moderate pain. If taking oxycodone, recommend taking daily stool softener to prevent constipation. This can be purchased over the counter (example: Colace, Mirlax) Continue all other prescription medications. SUMMARY OF TEST RESULTS: You were admitted to hospital secondary to acute cholecystitis. You underwent laparoscopic cholecystectomy and tolerated it well. On day of discharge you are tolerating a low-fat diet and will be discharged home on this. You will follow-up with general surgery and office to have drain removed. You will complete antibiotics. PENDING TEST RESULTS: Gallbladder pathology, you general surgeon will have the results of this. RECOMMENDATIONS FOR FOLLOW-UP: Please complete antibiotics in their entirety. Please follow general surgery recommendations regarding drain and bulb. Recommend adhering to low-fat and low fiber diet. Information will be provided to you at discharge. Please follow-up with primary care provider as scheduled. OTHER INSTRUCTIONS: Seek medical attention if you have: * temperature above 101 * chest pain or trouble breathing * abdominal pain, nausea, vomiting * diarrhea, dark stools or bloody stools * any unanswered questions or concerns Call 911 if symptoms are severe. Please take good care of yourself. It has been a pleasure taking care of you. Please take care of yourself. If you have any questions regarding your recent hospitalization please contact [facility] and request [facility] @ [phone]. Leidy Steinberg PA-C Total Time Total Time Spent Total Time Spent (In Minutes): 45 minutes Supervising Physician Co-Signing Physician Notes I have seen and examined the patient and have discussed the case with the provider above. I agree with the assessment and plan as stated. The patient is doing well, pain controlled, tolerating PO. Hemodynamically stable and afebrile. Abdomen is wrapped in binder, IFTIKHAR drain in place. Soft NTND. Agree with plan above. present at bedside and all questions were addressed. DO John
--- NOTE | 2023-02-18 15:48 | Coding Query ---
CODING QUERY To promote full compliance with coding requirements relating to patient care, provider participation is requested in all cases of permastone applicator uncertainty. Please assist us with the question(s) below: Coding Question(s): There is documentation in the record of Possible Pneumonia, and the Discharge Summary documents, "Incidentally on initial CT abdomen pelvis that revealed acute cholecystitis also noted was a questionable right lower lobe airspace opacity concerning for pneumonia or aspiration. Patient denied any respiratory symptoms, cough or shortness of breath. He was saturating well on room air and did not become hypoxic therefore likely no acute infection". Please specify below, in your clinical opinion, regarding Possible Pneumonia: ( ) Possible Pneumonia was treated/monitored during this admission (x ) Possible Pneumonia was Ruled-Out ( ) Other: Please Specify Physician's Response(s): Thank you Shannon Pena Principal Diagnosis: "that condition established after study, to be chiefly responsible for occasioning the admission of the patient to the hospital for care." Co-Existing Principal Diagnosis: "when two or more diagnoses equally meet the criteria for principal diagnosis as determined by the circumstances of admission, diagnostic work up, and/or therapy provided, and the Alphabetic Index, Tabular List, or another coding guideline does not provide sequencing direction, any one of the diagnoses may be sequenced first." "When the physician has documented what appears to be a current diagnosis in the body of the record, but has not included the diagnosis in the final diagnostic statement, the physician should be asked whether the diagnosis should be added." (Source [facility] 2 QTR90. p3-4) ASHANTI
== END 2023-02-13 13:52 | disposition home or self-care (01) | DRG 418 ==
LOC: ED 16:46 → 3W 02-11 01:48 → SUATTDRO 02-11 01:48 → 3W 02-11 02:17